=== PATIENT | female | born 1975 | race Caucasian/White ===

== ENCOUNTER 2019-04-23 23:35 | Inpatient (IN) | payer OTHER ==
[~2019-04-23] VITALS: Ht 162.6 cm; Wt 81.6 kg
[2019-04-23] MEDS ORDERED: PREN-55 PO (23:42)
[2019-04-23] MEDS ORDERED: LEVO75TA7 PO (23:42)
[2019-04-23] MEDS ORDERED: LIDOCAINE HCL 1% 20ML VIAL (Pyxis) INJ ONE (23:55)
[2019-04-24] MEDS ORDERED: LANOLIN OINT 7GM TUBE TOP PRN (00:45)
[2019-04-24] MEDS ORDERED: METHYLERGONOVINE MALEATE 0.2 MG/ML IM PRN ×2 (00:45→01:15)
[2019-04-24] MEDS ORDERED: RHO(D) IMMUNE GLOBULIN 300 MCG/SYR IM PRN ×2 (00:45→01:15)
[2019-04-24] MEDS ORDERED: IBUPROFEN 400MG TABLET PO PRN (00:45)
[2019-04-24] MEDS: DEXT 5%/LR + PITOCIN 20UNITS/L 1,000 ML IV SCH ×2 (00:59→02:15)
[2019-04-24] MEDS ORDERED: METHYLERGONOVINE MALEATE 0.2 MG/ML ONE (00:59)
[2019-04-24] MEDS ORDERED: DEXT 5%/LR + PITOCIN 20UNITS/L 1,000 ML IV SCH (01:04)
[2019-04-24] MEDS ORDERED: DEXT 5%/LACTATED RINGERS 1,000 ML IV SCH (01:04)
[2019-04-24] MEDS ORDERED: LIDOCAINE HCL 1% 20ML VIAL (Pyxis) INJ INFIL SCH (01:15)
[2019-04-24] MEDS ORDERED: NALOXONE HCL 0.4 MG/ML 1ML VIAL IM PRN (01:15)
[2019-04-24 02:33] LABS: INR 0.9; PARTIAL THROMBOPLASTIN TIME 25.7 sec (23.4-31.0); PROTHROMBIN TIME 9.6 sec (9.6-11.0)
[2019-04-24 03:00] LABS: CLARITY URINE CLEAR (CLEAR); COLOR URINE YELLOW (YELLOW); KETONES URINE 1+ (NEGATIVE); LEUKOCYTE ESTERASE URINE NEGATIVE (NEGATIVE); NITRITE URINE NEGATIVE (NEGATIVE); OCCULT BLOOD URINE NEGATIVE (NEGATIVE); PH URINE 5.5 (4.5-8.0); PROTEIN URINE 1+ (NEGATIVE); SPECIFIC GRAVITY URINE 1.022 (1.005-1.030); UROBILINOGEN URINE 0.2 E.U./dL (0.2-1.0)
[2019-04-24 03:18] LABS: *AMPHETAMINES SCREEN URINE NEGATIVE (NEGATIVE)
[2019-04-24 03:19] LABS: *BARBITURATES SCREEN URINE NEGATIVE (NEGATIVE); *BENZODIAZEPINES SCREEN URINE NEGATIVE (NEGATIVE); *COCAINE SCREEN URINE NEGATIVE (NEGATIVE); METHADONE URINE SCREEN NEGATIVE (NEGATIVE)
[2019-04-24 03:20] LABS: CANNABINOID URINE SCREEN NEGATIVE (NEGATIVE); OPIATES URINE SCREEN NEGATIVE (NEGATIVE); PHENCYCLIDINE URINE SCREEN NEGATIVE (NEGATIVE)
[2019-04-24 03:25] VITALS: BP 123/66
[2019-04-24 03:47] LABS: HEPATITIS B SURFACE ANTIGEN NEGATIVE
[2019-04-24 03:55] VITALS: BP 103/62
[2019-04-24 04:25] VITALS: BP 106/60
[2019-04-24 07:45] VITALS: BP 115/72
[2019-04-24] MEDS: PRENATAL VIT/FE FUMARATE/FA TABLET PO SCH (08:59)
[2019-04-24 09:26] LABS: BASOPHILS % 0.2 % (0.0-2.0); HEMATOCRIT. 33.5 % (36.0-48.0); HEMOGLOBIN. 11.3 g/dL (12.0-16.0); LYMPHOCYTES % 10.2 % (20.0-50.0); MEAN CORPUSCULAR HEMOGLOBIN 31.4 pg (28.0-32.0); MEAN CORPUSCULAR VOLUME 93.3 fL (81.0-99.0); MEAN PLATELET VOLUME 8.9 fl (7.4-10.4); MONOCYTES % 6.5 % (2.0-8.0); NEUTROPHILS % 83.1 % (40.0-76.0); PLATELET 253 x1000/uL (130-400); RED BLOOD CELL COUNT 3.59 mill/uL (4.2-5.4); RED CELL DISTRIBUTION WIDTH 13.8 % (11.6-14.6)
[2019-04-24 16:02] VITALS: BP 112/55
[2019-04-24] MEDS: IBUPROFEN 800MG TABLET PO PRN (16:04)
[2019-04-24 20:00] VITALS: BP 99/56
[2019-04-24] MEDS: DOCUSATE SODIUM 100MG CAPSULE PO SCH (21:03)
[2019-04-25] VITALS: BP 102/60
[2019-04-25 07:30] VITALS: BP 105/56
[2019-04-25 07:55] LABS: BASOPHILS % 0.2 % (0.0-2.0); EOSINOPHILS % 0.7 % (0.0-5.0); HEMATOCRIT. 29.6 % (36.0-48.0); HEMOGLOBIN. 9.9 g/dL (12.0-16.0); MEAN CORPUSCULAR HEMOGLOBIN 31.2 pg (28.0-32.0); MEAN CORPUSCULAR VOLUME 93.1 fL (81.0-99.0); MEAN PLATELET VOLUME 9.3 fl (7.4-10.4); MONOCYTES % 7.7 % (2.0-8.0); NEUTROPHILS % 71.4 % (40.0-76.0); PLATELET 224 x1000/uL (130-400); RED BLOOD CELL COUNT 3.17 mill/uL (4.2-5.4); RED CELL DISTRIBUTION WIDTH 13.3 % (11.6-14.6)
[2019-04-25] MEDS: PRENATAL VIT/FE FUMARATE/FA TABLET PO SCH (09:29)
[2019-04-25] MEDS: IBUPROFEN 800MG TABLET PO PRN ×2 (09:29→21:18)
[2019-04-25] MEDS ORDERED: GLYCERIN/WITCH HAZEL LEAF MEDICATED PAD TOP PRN (11:30)
[2019-04-25] MEDS ORDERED: BENZOCAINE/LANOLIN/ALOE VERA SPRAY TOP PRN (11:30)
[2019-04-25 15:45] VITALS: BP 114/65
[2019-04-25 20:00] VITALS: BP 107/55
[2019-04-25] MEDS: DOCUSATE SODIUM 100MG CAPSULE PO SCH (21:13)
[2019-04-26 04:00] VITALS: BP 106/58
[2019-04-26] MEDS ORDERED: IBUP-2030 PO (06:45)
[2019-04-26 08:00] VITALS: BP 101/59
[2019-04-26] MEDS: IBUPROFEN 800MG TABLET PO PRN (09:17)
[2019-04-26] MEDS: PRENATAL VIT/FE FUMARATE/FA TABLET PO SCH (09:17)
== END 2019-04-26 15:25 | disposition home or self-care (01) | DRG 807 ==
LOC: 8 EST LDRP 23:35 → OBSVTOIN 23:35 → 8EST 04-24 01:15
PROVIDERS: ADMIT Obstetrics & Gynecology; ATTEND Obstetrics & Gynecology
PROC: 10E0XZZ Delivery of Products of Conception, External Approach (ICD-10-PCS; principal; 2019-04-24)
PROC: 0KQM0ZZ Repair Perineum Muscle, Open Approach (ICD-10-PCS; 2019-04-24)
DX: O48.0 Post-term pregnancy (principal); Z37.0 Single live birth; O99.284 Endocrine, nutritional and metabolic diseases complicating childbirth; D64.9 Anemia, unspecified; O70.1 Second degree perineal laceration during delivery; O90.81 Anemia of the puerperium; E03.9 Hypothyroidism, unspecified; Z3A.40 40 weeks gestation of pregnancy
CPT/HCPCS: 36415; 80305; 81003; 85025; 86592; 86703; 86762; 86850; 86900; 87340; 99281; G0378; J2210; J2590; J3490